=== PATIENT | female | born 1960 | race Two or more races ===

== ENCOUNTER 2022-02-27 16:28 | Emergency (ER) | payer OTHER ==
[~2022-02-27] VITALS: Ht 157.5 cm; Wt 83.5 kg
[2022-02-27] MEDS ORDERED: CLONAZEPAM1 MG (17:27)
[2022-02-27] MEDS ORDERED: RESTORIL30 MG (17:27)
[2022-02-27] MEDS ORDERED: VERAPAMIL ER240 MG (17:27)
[2022-02-27] MEDS ORDERED: IRBESARTAN-HCT1 EACH (17:27)
[2022-02-27] MEDS ORDERED: DICYCLOMINE HCL20 MG (17:28)
[2022-02-27] MEDS ORDERED: PROZAC40 MG (17:28)
== END 2022-02-27 22:50 | disposition home or self-care (01) ==
LOC: ER 16:28
DX: R10.9 Unspecified abdominal pain (principal); K80.20 Calculus of gallbladder without cholecystitis without obstruction